=== PATIENT | female | born 1980 | race African-American/Black ===

== ENCOUNTER 2016-12-22 15:20 | Emergency (ER) | payer OTHER ==
[~2016-12-22] VITALS: Ht 170.2 cm; Wt 118.8 kg
[2016-12-22 15:24] VITALS: BP 146/88
[2016-12-22] MEDS ORDERED: [UNRECOGNIZED DRUG - REMARK] (15:31)
[2016-12-22] MEDS ORDERED: BACTRIM DS TAB1 EACH PO ×2 (15:46→15:49)
== END 2016-12-22 16:02 | disposition home or self-care (01) ==
LOC: ER 15:20
DX: N76.0 Acute vaginitis (principal)

== ENCOUNTER 2019-11-19 14:31 | Emergency (ER) | payer OTHER ==
[~2019-11-19] VITALS: Ht 170.2 cm; Wt 130.2 kg
[~2019-11-19 14:31] MED LIST: BACTRIM DS TAB1 EACH PO; [UNRECOGNIZED DRUG - REMARK]
[2019-11-19 15:13] VITALS: BP 197/101
== END 2019-11-19 15:52 | disposition short-term general hospital (02) ==
LOC: ER 14:31
DX: S01.81XA Laceration without foreign body of other part of head, initial encounter (principal); E78.00 Pure hypercholesterolemia, unspecified; W26.8XXA Contact with other sharp object(s), not elsewhere classified, initial encounter; Y93.89 Activity, other specified; Y92.89 Other specified places as the place of occurrence of the external cause; Y99.8 Other external cause status